=== PATIENT | male | born 1995 | race African-American/Black ===

== ENCOUNTER 2021-12-13 03:25 | Emergency (ER) | payer OTHER ==
[~2021-12-13] VITALS: Ht 175.3 cm; Wt 106.8 kg
[2021-12-13] MEDS ORDERED: PERTUSS(ACELL),DIPH,TET VAC/PF 0.5 ML SYRINGE IM. ONE (05:30)
[2021-12-13] MEDS ORDERED: LIDOCAINE 1% 10 ML VIAL SQ ONE (05:30)
[2021-12-13 06:17] VITALS: BP 119/85
== END 2021-12-13 07:01 | disposition home or self-care (01) ==
LOC: EMS 03:31
DX: S01.511A Laceration without foreign body of lip, initial encounter (principal); S40.812A Abrasion of left upper arm, initial encounter; S40.811A Abrasion of right upper arm, initial encounter; S50.812A Abrasion of left forearm, initial encounter; S50.811A Abrasion of right forearm, initial encounter; Z91.018 Allergy to other foods; X58.XXXA Exposure to other specified factors, initial encounter; Y93.89 Activity, other specified; Y92.89 Other specified places as the place of occurrence of the external cause; Y99.8 Other external cause status
CPT/HCPCS: 12013; 90471; 90715; 99283; J3490